=== PATIENT | male | born 1945 | race Two or more races ===

== ENCOUNTER 2020-02-09 16:29 | Emergency (ER) | payer MEDICAID ==
[~2020-02-09] VITALS: Ht 185.4 cm; Wt 88.5 kg
[2020-02-09 16:29] VITALS: BP 140/92
--- NOTE | 2020-02-09 19:47 | NUR ---
PATIENT PROVIDED WOUND CARE, DRESSING APPLIED. PATIENT IS ABLE TO AMBULATE STEADILY WITH PROPER GAIT.
--- NOTE | 2020-02-09 20:00 | NUR ---
Patient discharged to home in stable condition. Written and verbal after care instructions given. Patient verbalizes understanding of instruction.
--- NOTE | 2020-02-09 20:00 | NUR ---
Patient given written and verbal discharge instructions. Patient verbalizes understanding of instructions. Patient is ambulatory with steady gait. Refuses offer of intermediate placement. Patient given list of available shelters in surrounding area.
--- NOTE | 2020-02-09 20:00 | NUR ---
Patient discharged to home in stable condition. Written and verbal after care instructions given. Patient verbalizes understanding of instruction.
== END 2020-02-09 20:01 | disposition home or self-care (01) ==
LOC: ER 16:35
DX: L97.929 Non-pressure chronic ulcer of unspecified part of left lower leg with unspecified severity (principal); Z59.0 Homelessness
CPT/HCPCS: 73590-TC